=== PATIENT | female | born 1955 | race Caucasian/White ===

== ENCOUNTER 2016-11-26 14:48 | Outpatient (CLI) | payer OTHER ==
[2016-07-01 23:22] VITALS: BP 117/66
== END 2016-11-26 14:50 ==
LOC: LAB 14:48
PROVIDERS: ATTEND Nurse Practitioner Family
DX: Z51.81 Encounter for therapeutic drug level monitoring (principal); Z79.01 Long term (current) use of anticoagulants; I48.91 Unspecified atrial fibrillation
CPT/HCPCS: 36415; 85610

== ENCOUNTER 2017-01-26 10:13 | Outpatient (CLI) | payer OTHER ==
[2016-07-01 23:22] VITALS: BP 117/66
== END 2017-01-26 10:14 ==
LOC: LAB 10:13
PROVIDERS: ATTEND Nurse Practitioner Family
DX: Z51.81 Encounter for therapeutic drug level monitoring (principal); Z79.01 Long term (current) use of anticoagulants; I48.91 Unspecified atrial fibrillation
CPT/HCPCS: 36415; 85610

== ENCOUNTER 2017-04-07 10:59 | Outpatient (CLI) | payer OTHER ==
[2016-07-01 23:22] VITALS: BP 117/66
== END 2017-04-07 11:00 ==
LOC: LAB 10:59
PROVIDERS: ATTEND Nurse Practitioner Family
DX: I48.91 Unspecified atrial fibrillation (principal)
CPT/HCPCS: 36415; 85610

== ENCOUNTER 2017-05-02 10:19 | Emergency (ER) | payer OTHER ==
[2017-05-02] MEDS ORDERED: IPRATROPIUM/ALBUTEROL SULFATE 3 ML AMPUL.NEB NEB ONE (10:32)
--- NOTE | 2017-05-02 11:11 | Diagnostic Imaging Report ---
[facility] [address] [facility] [address] [place], [place]. [address] Report Submission Date: May 02, 2017 11:04:35 AM CDT Patient Study Name: RAMIREZ SINHA Date: May 02, 2017 10:43:46 AM CDT MRN: [id number] Modality Type: CR Gender: F Description: CHEST : 57 Institution: [facility] Physician: PARKER HIDALGO - ER Chest 2 views History: 2 days of cough Findings: Median sternotomy has been performed. Heart size and pulmonary vascularity are upper normal. There is no infiltrate or pleural effusion. Obesity is observed. Impression: 1. No acute abnormality. 2. Upper normal heart size, borderline pulmonary vascular congestion, and sternotomy. Electronically signed on May 02, 2017 11:04:35 AM CDT by: Moustapha GARCIA
[2017-05-02 11:31] VITALS: BP 133/64
--- NOTE | 2017-05-02 15:57 | ED Physician Documentation ---
General Adult - HISTORIAN Historian: patient - HPI Stated Complaint: Bronchitis Chief Complaint: General Adult Onset: days ago Timing: still present Severity: moderate Further Comments: yes (Pt is a 61 yo female dx'd with bronchitis yesterday and started on ProAir and Augmentin. Pt sx have not improved, though tx was just yesterday started.) - ROS CONST: no problems EYES/ENT: none CVS/RESP: cough GI/: none MS/SKIN/LYMPH: none - PAST HX Past History: other (heart dz, HTN, HLD, hypothyroidism) Allergies/Adverse Reactions: Allergies Allergy/AdvReac Type Severity Reaction Status Date / Time No Known Allergies Allergy Verified 05/02/17 10:33 Home Medications: Ambulatory Orders Medication Instructions Recorded Levothyroxine Sodium [Synthroid] 100 mcg PO DAILY 06/18/13 Potassium Chloride [K-Dur] 80 meq PO DAILY 06/18/13 Spironolactone [Aldactone] 50 mg PO DAILY 06/18/13 Warfarin Sodium [Coumadin] 5 mg PO DAILY 06/18/13 Alprazolam [Alprazolam] 0.5 mg PO PRN PRN 07/01/16 Amlodipine Besylate [Amlodipine 5 mg PO DAILY 07/01/16 Besylate] Furosemide [Furosemide] 80 mg PO BID 07/01/16 Ropinirole HCl [Requip] 2 mg PO DAILY 07/01/16 Simvastatin [Simvastatin] 20 mg PO DAILY 07/01/16 Sotalol HCl [Sotalol] 80 mg PO BID 07/01/16 Albuterol Sulfate [Proair HFA] 05/02/17 Amoxicillin/Potassium Clav 875 each PO DAILY 05/02/17 [Augmentin 875Mg/125Mg] - SOCIAL HX Smoking History: cigarettes - FAMILY HX Family History: No - VITAL SIGNS Vital Signs: Vital Signs Temp Pulse Resp BP Pulse Ox 97.8 F 78 20 137/74 98 05/02/17 10:20 05/02/17 10:20 05/02/17 10:20 05/02/17 10:20 05/02/17 10:20 - REVIEWED ASSESSMENTS Nursing Assessment Reviewed: Yes Vitals Reviewed: Yes Progress - Progress Progress: Duoneb HFN in ER. Rx Prednisone 50 mg. Take one by mouth once daily for five days. Continue Augmentin and ProAir as previously prescribed. ED Results Lab/Radiology - Orders Orders: ED Orders Category Date Time Status CHEST P.A.&LAT 2 VIEWS [RAD] Stat Exams 05/02/17 Completed Ipratropium/Albuterol Sulfate [Duoneb] Med 05/02/17 10:32 Discontinued 3 ml NEB NOW ONE General Adult Physical Exam - PHYSICAL EXAM GENERAL APPEARANCE: mild distress EENT: eye inspection normal, ENT inspection normal, pharynx normal NECK: normal inspection, supple RESPIRATORY: no resp distress, chest non-tender, wheezes CVS: reg rate & rhythm, heart sounds normal BACK: normal inspection, no CVA tenderness SKIN: warm/dry, normal color EXTREMITIES: non-tender, normal range of motion, no evidence of injury NEURO: oriented X3, motor nml, sensation nml Discharge Clincal Impression: bronchitis Referrals: Rad Montalvo, [Primary Care Provider] - Home Medications: Ambulatory Orders Levothyroxine Sodium [Synthroid] 100 mcg PO DAILY 06/18/13 Potassium Chloride [K-Dur] 80 meq PO DAILY 06/18/13 Spironolactone [Aldactone] 50 mg PO DAILY 06/18/13 Warfarin Sodium [Coumadin] 5 mg PO DAILY 06/18/13 Alprazolam [Alprazolam] 0.5 mg PO PRN PRN 07/01/16 Amlodipine Besylate [Amlodipine Besylate] 5 mg PO DAILY 07/01/16 Furosemide [Furosemide] 80 mg PO BID 07/01/16 Ropinirole HCl [Requip] 2 mg PO DAILY 07/01/16 Simvastatin [Simvastatin] 20 mg PO DAILY 07/01/16 Sotalol HCl [Sotalol] 80 mg PO BID 07/01/16 Albuterol Sulfate [Proair HFA] 05/02/17 Amoxicillin/Potassium Clav [Augmentin 875Mg/125Mg] 875 each PO DAILY 05/02/17 Condition: Good Disposition: 01 HOME, SELF-CARE Decision to Admit: NO Decision Time: 11:26
== END 2017-05-02 11:30 | disposition home or self-care (01) ==
LOC: ED 10:19
DX: J20.9 Acute bronchitis, unspecified (principal)
CPT/HCPCS: 71020; 99283

== ENCOUNTER 2017-05-25 13:21 | Outpatient (CLI) | payer OTHER | END 2017-05-25 13:22 | LOC: LAB 13:21 | PROVIDERS: ATTEND Nurse Practitioner Family | DX: I48.91 Unspecified atrial fibrillation (principal) | CPT/HCPCS: 36415; 85610 ==

== ENCOUNTER 2017-06-08 13:41 | Outpatient (CLI) | payer OTHER | END 2017-06-08 13:42 | LOC: LAB 13:41 | PROVIDERS: ATTEND Nurse Practitioner Family | DX: I48.2 Chronic atrial fibrillation (principal); Z79.01 Long term (current) use of anticoagulants | CPT/HCPCS: 36415; 85610 ==

== ENCOUNTER → 2017-07-01 | Outpatient (CLI) | payer OTHER | LOC: LAB 14:58 | PROVIDERS: ATTEND Nurse Practitioner Family | DX: I48.2 Chronic atrial fibrillation (principal); Z79.01 Long term (current) use of anticoagulants | CPT/HCPCS: 36415; 85610 ==

== ENCOUNTER 2017-07-06 12:02 | Outpatient (CLI) | payer OTHER | END 2017-07-06 12:03 | LOC: LAB 12:02 | PROVIDERS: ATTEND Nurse Practitioner Family | DX: I48.2 Chronic atrial fibrillation (principal); Z79.01 Long term (current) use of anticoagulants | CPT/HCPCS: 36415; 85610 ==

== ENCOUNTER 2017-07-23 10:01 | Outpatient (CLI) | payer OTHER ==
--- NOTE | 2017-07-23 15:47 | Diagnostic Imaging Report ---
DIONY ZAVALA (LIFE SCIENTIST) - OP [facility] [address] [facility] [address] [place], [place]. [address] Report Submission Date: Jul 23, 2017 10:25:24 AM CDT Patient Study Name: RAMIREZ SINHA Date: Jul 23, 2017 10:03:59 AM CDT MRN: [id number] Modality Type: CR Gender: F Description: CHEST : 57 Institution: [facility] Physician: DIONY ZAVALA (LIFE SCIENTIST) - OP Examination: PA and lateral chest. History: Evaluate lung atkinson. Comparison exam: 02 May 2017 Findings: PA lateral chest demonstrate a normal cardiac and mediastinal silhouette. Sternotomy wires. No focal infiltrate. No effusion. No blunting of the costophrenic margins. Osseous structures are appropriate for age. Impression: No acute pulmonary process. Electronically signed on Jul 23, 2017 10:25:24 AM CDT by: Shlomo GARCIA
== END 2017-07-23 10:02 ==
LOC: LAB 10:01
PROVIDERS: ATTEND Nurse Practitioner Family
DX: I48.2 Chronic atrial fibrillation (principal); Z79.01 Long term (current) use of anticoagulants
CPT/HCPCS: 36415; 71020; 82306; 85610

== ENCOUNTER 2017-09-27 13:02 | Outpatient (CLI) | payer OTHER | END 2017-09-27 13:10 | LOC: LAB 13:02 | PROVIDERS: ATTEND Nurse Practitioner Family | DX: I48.2 Chronic atrial fibrillation (principal); Z79.01 Long term (current) use of anticoagulants | CPT/HCPCS: 36415; 85610 ==

== ENCOUNTER 2017-11-12 12:41 | Outpatient (CLI) | payer OTHER ==
--- NOTE | 2017-11-12 13:58 | Diagnostic Imaging Report ---
DIONY ZAVALA (JEO) - OP [facility] [address] [address] Report Submission Date: Nov 12, 2017 1:10:10 PM TOOL AND GAUGE INSPECTOR Patient Study Name: RAMIREZ SINHA Date: Nov 12, 2017 12:53:22 PM TOOL AND GAUGE INSPECTOR MRN: [id number] Modality Type: US Gender: F Description: ULTRASOUND UNLISTED PROC : 57 Institution: [facility] Physician: DIONY ZAVALA (JOE) - OP Examination: Ultrasound extremity History: Palpable density Comparison exams: None provided Findings: Sonographic evaluation of the right axilla in the region of the palpable density. Anechoic structure just beneath the skin surface measuring 7.1 x 8.2 x 3.9 mm. No flow centrally on color analysis. No other solid or cystic structure identified. Impression: Likely subcutaneous sebaceous cyst. Electronically signed on Nov 12, 2017 1:10:10 PM TOOL AND GAUGE INSPECTOR by: Shlomo GARCIA
== END 2017-11-12 12:42 ==
LOC: RAD 12:41
PROVIDERS: ATTEND Nurse Practitioner Family
DX: R22.2 Localized swelling, mass and lump, trunk (principal)
CPT/HCPCS: 76999

== ENCOUNTER 2017-11-30 16:02 | Outpatient (CLI) | payer OTHER | END 2017-11-30 16:03 | LOC: LAB 16:02 | PROVIDERS: ATTEND Nurse Practitioner Family | DX: I48.2 Chronic atrial fibrillation (principal); Z79.01 Long term (current) use of anticoagulants | CPT/HCPCS: 36415; 85610 ==

== ENCOUNTER → 2017-12-10 | Outpatient (CLI) | payer OTHER | LOC: LAB 13:37 | PROVIDERS: ATTEND Nurse Practitioner Family | DX: I48.2 Chronic atrial fibrillation (principal); Z79.01 Long term (current) use of anticoagulants | CPT/HCPCS: 36415; 85610 ==

== ENCOUNTER 2017-12-17 10:35 | Outpatient (CLI) | payer OTHER | END 2017-12-17 10:36 | LOC: LAB 10:35 | PROVIDERS: ATTEND Nurse Practitioner Family | DX: I48.2 Chronic atrial fibrillation (principal); Z79.01 Long term (current) use of anticoagulants | CPT/HCPCS: 36415; 85610 ==

== ENCOUNTER 2018-01-06 10:54 | Outpatient (CLI) | payer OTHER | END 2018-01-06 10:55 | LOC: LAB 10:54 | PROVIDERS: ATTEND Nurse Practitioner Family | DX: I48.2 Chronic atrial fibrillation (principal); Z79.01 Long term (current) use of anticoagulants | CPT/HCPCS: 36415; 85610 ==

== ENCOUNTER 2018-03-30 14:39 | Outpatient (CLI) | payer OTHER | END 2018-03-30 14:40 | LOC: LAB 14:39 | PROVIDERS: ATTEND Nurse Practitioner Family | DX: I48.2 Chronic atrial fibrillation (principal); Z79.01 Long term (current) use of anticoagulants | CPT/HCPCS: 36415; 85610 ==

== ENCOUNTER 2018-06-01 11:20 | Outpatient (CLI) | payer OTHER | END 2018-06-01 13:29 | LOC: LAB 11:20 | PROVIDERS: ATTEND Nurse Practitioner Family | DX: I48.2 Chronic atrial fibrillation (principal); Z79.01 Long term (current) use of anticoagulants | CPT/HCPCS: 36415; 85610 ==

== ENCOUNTER 2018-07-01 11:07 | Outpatient (CLI) | payer OTHER | END 2018-07-01 11:10 | LOC: LAB 11:07 | PROVIDERS: ATTEND Internal Medicine | DX: I48.91 Unspecified atrial fibrillation (principal) | CPT/HCPCS: 36415; 85610 ==

== ENCOUNTER 2018-07-20 09:49 | Outpatient (CLI) | payer OTHER | END 2018-07-20 09:50 | LOC: LAB 09:49 | PROVIDERS: ATTEND Nurse Practitioner Family | DX: I48.2 Chronic atrial fibrillation (principal); Z79.01 Long term (current) use of anticoagulants | CPT/HCPCS: 36415; 85610 ==

== ENCOUNTER 2018-08-03 12:39 | Outpatient (CLI) | payer OTHER ==
--- NOTE | 2018-08-03 18:28 | Diagnostic Imaging Report ---
DIONY ZAVALA (JOE) - OP [facility] [address] [address] Report Submission Date: Aug 03, 2018 1:21:01 PM CDT Patient Study Name: RAMIREZ SINHA Date: Aug 03, 2018 12:41:00 PM CDT Modality Type: DX Gender: F Description: CHEST : 57 Institution: [facility] Physician: DIONY ZAVALA (JOE) - OP Examination: PA and lateral chest. History: Evaluate lung atkinson. SHORTNESS OF AIR; CHEST TIGHTNESS; BILAT LOWER EXT SWELLING X 1 DAY (Hx) Comparison exam: 23 July 2017 Findings: PA and lateral views of the chest demonstrates a normal cardiac and mediastinal silhouette. Mildly tortuous aorta. Sternotomy wires. Chronic interstitial changes. No focal infiltrate. No blunting of the costophrenic margins. Osseous structures are appropriate for age. Impression: Chronic interstitial changes. No acute pulmonary process. Electronically signed on Aug 03, 2018 1:21:01 PM CDT by: Shlomo GARCIA
== END 2018-08-03 12:40 ==
LOC: RAD 12:39
PROVIDERS: ATTEND Nurse Practitioner Family
DX: R06.02 Shortness of breath (principal); R60.0 Localized edema
CPT/HCPCS: 71046

== ENCOUNTER 2018-09-01 10:53 | Outpatient (CLI) | payer OTHER | END 2018-09-01 10:55 | LOC: LAB 10:53 | PROVIDERS: ATTEND Nurse Practitioner Family | DX: I48.2 Chronic atrial fibrillation (principal); Z79.01 Long term (current) use of anticoagulants | CPT/HCPCS: 36415; 85610 ==

== ENCOUNTER 2018-12-08 12:43 | Outpatient (CLI) | payer OTHER | END 2018-12-08 12:44 | LOC: LAB 12:43 | PROVIDERS: ATTEND Nurse Practitioner Family | DX: I48.91 Unspecified atrial fibrillation (principal); Z79.01 Long term (current) use of anticoagulants | CPT/HCPCS: 36415; 85610 ==

== ENCOUNTER 2018-12-09 10:42 | Outpatient (CLI) | payer OTHER | END 2018-12-09 10:50 | LOC: LAB 10:42 | PROVIDERS: ATTEND Physical Medicine & Rehabilitation | DX: M81.0 Age-related osteoporosis without current pathological fracture (principal) | CPT/HCPCS: 36415; 82306 ==

== ENCOUNTER 2019-01-05 11:35 | Outpatient (CLI) | payer OTHER | END 2019-01-05 11:36 | LOC: LAB 11:35 | PROVIDERS: ATTEND Nurse Practitioner Family | DX: I48.91 Unspecified atrial fibrillation (principal); Z79.01 Long term (current) use of anticoagulants | CPT/HCPCS: 36415; 85610 ==

== ENCOUNTER 2019-02-02 12:38 | Outpatient (CLI) | payer OTHER | END 2019-02-02 12:40 | LOC: LAB 12:38 | PROVIDERS: ATTEND Nurse Practitioner Family | DX: Z79.01 Long term (current) use of anticoagulants (principal) | CPT/HCPCS: 36415; 85610 ==

== ENCOUNTER 2019-02-08 11:08 | Outpatient (CLI) | payer OTHER | END 2019-02-08 11:10 | LOC: LAB 11:08 | PROVIDERS: ATTEND Nurse Practitioner Family | DX: Z79.01 Long term (current) use of anticoagulants (principal) | CPT/HCPCS: 36415; 85610 ==

== ENCOUNTER 2019-02-17 11:17 | Outpatient (CLI) | payer OTHER | END 2019-02-17 11:30 | LOC: LAB 11:17 | PROVIDERS: ATTEND Nurse Practitioner Family | DX: Z79.01 Long term (current) use of anticoagulants (principal) | CPT/HCPCS: 36415; 85610 ==

== ENCOUNTER 2019-03-10 11:01 | Outpatient (CLI) | payer OTHER ==
[2019-03-10 12:09] LABS: eGFR (Non-African) > 60
== END 2019-03-10 11:03 ==
LOC: LAB 11:01
PROVIDERS: ATTEND Nurse Practitioner Family
DX: G47.62 Sleep related leg cramps (principal); E03.4 Atrophy of thyroid (acquired); I50.9 Heart failure, unspecified
CPT/HCPCS: 36415; 80053; 83735; 84443

== ENCOUNTER 2019-08-07 09:46 | Outpatient (CLI) | payer OTHER ==
[2019-08-07 11:04] LABS: MAGNESIUM 1.8 mIU/l (1.6-2.3); eGFR (Non-African) > 60
[2019-08-07 11:58] LABS: BASOPHILS % 0.3 % (0.0-1.5); NEUTROPHILS # 4.4 # k/uL (1.4-7.7)
== END 2019-08-07 09:48 ==
LOC: LAB 09:46
PROVIDERS: ATTEND Nurse Practitioner Family
DX: M13.0 Polyarthritis, unspecified (principal); M79.10 Myalgia, unspecified site; R60.0 Localized edema
CPT/HCPCS: 36415; 80053; 82550; 83735; 83880; 84443; 85025; 85610; 85651; 86140

== ENCOUNTER 2019-11-09 14:20 | Outpatient (CLI) | payer OTHER | END 2019-11-09 14:25 | LOC: LAB 14:20 | PROVIDERS: ATTEND Nurse Practitioner Family | DX: Z51.81 Encounter for therapeutic drug level monitoring (principal); Z79.01 Long term (current) use of anticoagulants; I48.92 Unspecified atrial flutter | CPT/HCPCS: 36415; 85610 ==

== ENCOUNTER 2019-11-13 12:00 | Outpatient (CLI) | payer OTHER | END 2019-11-13 12:05 | LOC: LAB 12:00 | PROVIDERS: ATTEND Nurse Practitioner Family | DX: I48.20 Chronic atrial fibrillation, unspecified (principal); Z79.01 Long term (current) use of anticoagulants | CPT/HCPCS: 36415; 85610 ==